=== PATIENT | male | born 1995 | race Caucasian/White ===

== ENCOUNTER 2016-10-22 12:55 | Emergency (ER) | payer SELFPAY ==
[2016-10-22 12:59] VITALS: TEMP 98; BMI 32.0
--- NOTE | 2016-10-22 14:05 | PDOC ---
History of Present Illness - General History Source: Patient Exam Limitations: No Limitations - History of Present Illness Initial Comments: 10/22/16 14:06 The patient is a 20 year old male, with no significant past medical history who presents to the emergency department with multiple syncopal episodes over this past 2 weeks. The patient reports in addition having intermittent episodes of lightheadedness, dizziness, chills, nausea, and headache for about a month. He also notes having some mild intermittent chest pain with decreased appetite for about 15 days. He notes his most recent syncopal episode was this Thursday, while at work. He denies any head trauma. He denies any palpitations. He denies any recent fevers. He denies any recent diarrhea or constipation. He denies any recent shortness of breath. He denies any recent dysuria, frequency, urgency or hematuria. Patient denies any history of anemia or diabetes.He denies any history of exertional syncope. Allergies: NKA Past surgical history: None reported. Social History: Nonsmoker. Denies EtOH use and recreational drug use. <Mark Gan - Last Filed: 10/22/16 14:06> <Graciela Johnson - Last Filed: 10/22/16 16:55> - General Chief Complaint: Lightheaded Stated Complaint: HEADACHE, NAUSEA Past History <Mark Gan - Last Filed: 10/22/16 14:06> - Past Medical History Other medical history: NONE - Psycho/Social/Smoking Cessation Hx Anxiety: No Suicidal Ideation: No Smoking History: Never smoked Hx Alcohol Use: Yes (SOCIAL) Drug/Substance Use Hx: No Substance Use Type: None <Graciela Johnson - Last Filed: 10/22/16 16:55> - Past Medical History Allergies/Adverse Reactions: Allergies Allergy/AdvReac Type Severity Reaction Status Date / Time No Known Allergies Allergy Verified 10/22/16 12:59 Home Medications: Ambulatory Orders NK [No Known Home Medication] 10/22/16 Review of Systems - Review of Systems Able to Perform ROS?: Yes Comments:: 10/22/16 14:06 GENERAL/CONSTITUTIONAL: No fever. +chills. No weakness. HEAD, EYES, EARS, NOSE AND THROAT: No change in vision. No ear pain or discharge. No sore throat. CARDIOVASCULAR: +mild chest pain No shortness of breath. RESPIRATORY: No cough, wheezing, or hemoptysis. GASTROINTESTINAL: +nausea No vomiting, diarrhea or constipation. GENITOURINARY: No dysuria, frequency, or change in urination. MUSCULOSKELETAL: No joint or muscle swelling or pain. No neck or back pain. SKIN: No rash NEUROLOGIC: +headache, syncope, and dizziness No vertigo, loss of consciousness , or change in strength/sensation. ENDOCRINE: No increased thirst. No abnormal weight change. HEMATOLOGIC/LYMPHATIC: No anemia, easy bleeding, or history of blood clots. ALLERGIC/IMMUNOLOGIC: No hives or skin allergy. <Mark Gan - Last Filed: 10/22/16 14:06> *Physical Exam - Vital Signs Last Vital Signs Temp Pulse Resp BP Pulse Ox 98.0 F 79 20 152/47 99 10/22/16 12:55 10/22/16 12:55 10/22/16 12:55 10/22/16 12:55 10/22/16 12:55 - Physical Exam Comments: 10/22/16 14:06 GENERAL: Awake, alert, and fully oriented, in no acute distress HEAD: No signs of trauma EYES: PERRLA, EOMI, sclera anicteric, conjunctiva clear ENT: Auricles normal inspection, hearing grossly normal, nares patent, oropharynx clear without exudates. Moist mucosa NECK: Normal ROM, supple, no lymphadenopathy, JVD, or masses LUNGS: Breath sounds equal, clear to auscultation bilaterally. No wheezes, and no crackles HEART: Regular rate and rhythm, normal S1 and S2, no murmurs, rubs or gallops ABDOMEN: Soft, nontender, normoactive bowel sounds. No guarding, no rebound. No masses EXTREMITIES: Normal range of motion, no edema. No clubbing or cyanosis. No cords, erythema, or tenderness NEUROLOGICAL: Cranial nerves II through XII grossly intact. Normal speech, normal gait SKIN: Warm, Dry, normal turgor, no rashes or lesions noted. <Mark Gan - Last Filed: 10/22/16 14:06> - Vital Signs Last Vital Signs Temp Pulse Resp BP Pulse Ox 98.0 F 79 20 152/47 99 10/22/16 12:55 10/22/16 12:55 10/22/16 12:55 10/22/16 12:55 10/22/16 12:55 <Graciela Johnson - Last Filed: 10/22/16 16:55> ED Treatment Course - LABORATORY CBC & Chemistry Diagram: 10/22/16 15:02 10/22/16 15:02 <Graciela Johnson - Last Filed: 10/22/16 16:55> Medical Decision Making - Medical Decision Making 10/22/16 14:01 20 yo male from [facility]. living here for 6 mo no pmhx here with c/o feeling lightheaded . did have chest pain 15 days ago. has been feeling lightheaded for 1 mo. 10/22/16 16:54 focused ED TTE, indication syncope finding: good contractility. heart visualized in 4 views. parasternal long short and apical subxiphoid. no pericardial effusion. no wall motion irregularity. no rv enlargement. impression: normal cardiac ultrasound og <Graciela Johnson - Last Filed: 10/22/16 16:55> *DC/Admit/Observation/Transfer - Attestations Scribe Attestion: 10/22/16 14:06 Documentation prepared by Mark Gan, acting as medical sales associate for Graciela Johnson MD. <Mark Gan - Last Filed: 10/22/16 14:06>
[2016-10-22] MEDS ORDERED: SODIUM CHLORIDE 0.9% 1000 ML INFUS.BAG IV ONE (14:54)
[2016-10-22 15:35] LABS: BASOPHIL 0.6 % (0-2.0); EOSINOPHIL 2.7 % (0-4.5); MCH 29.3 pg (25.7-33.7); MCHC 32.2 g/dl (32.0-35.9); MEAN CELL VOLUME 90.7 fl (80-96); MEAN PLT VOLUME 9.6 fl (7.5-11.1); NEUTROPHILS 62.4 % (42.8-82.8); PLATELET COUNT 197 K/MM3 (134-434); WHITE BLOOD COUNT 8.1 K/mm3 (4.0-10.0)
[2016-10-22 17:54] LABS: ALBUMIN 3.8 g/dl (3.4-5.0); ANION GAP 6 (8-16); BILIRUBIN,TOTAL 0.3 mg/dL (0.2-1.0); CO2 31 mmol/L (21-32); CREATININE 0.9 mg/dL (0.7-1.3); GLUCOSE,RANDOM 92 mg/dL (74-106); SGOT/AST 12 U/L (15-37); SGPT/ALT 28 U/L (12-78); TOT PROT 7.5 g/dl (6.4-8.2)
[2016-10-22 17:57] LABS: ALK PHOS 63 U/L (45-117); CPK 102 IU/L (39-308); TROPONIN I < 0.02 ng/ml (0.00-0.05)
[2016-10-22 19:01] VITALS: BP 142/60; PULSE 74
--- NOTE | 2016-10-22 19:01 | PDOC ---
*Physical Exam - Vital Signs Last Vital Signs Temp Pulse Resp BP Pulse Ox 98.0 F 79 20 152/47 99 10/22/16 12:55 10/22/16 12:55 10/22/16 12:55 10/22/16 12:55 10/22/16 12:55 - Physical Exam Comments: 10/22/16 18:56 Patient endorsed to me by Dr. Zimmer. Patient's 20-year-old male who presented to the ER with multiple syncopal episodes. In the ER, patient is awake and alert , well-appearing, in no distress. As per Dr. foley, bedside echocardiogram revealed normal myocardial contractility. EKG reveals no evidence of ischemia; NM/QTc/QRS are within normal limit. There is no evidence of Brugada syndrome/WPW /arvd or any other condition that may lead to syncope. CBC C/CMP/cardiac enzymes within normal limit. Patient is safe for discharge with outpatient follow-up with cardiology. ED Treatment Course - LABORATORY CBC & Chemistry Diagram: 10/22/16 15:02 10/22/16 17:05 - ADDITIONAL ORDERS Additional order review: Laboratory Results 10/22/16 10/22/16 10/22/16 17:05 15:02 15:02 Sodium 139 Cancelled Potassium 4.8 Cancelled Chloride 102 Cancelled Carbon Dioxide 31 Cancelled Anion Gap 6 L Cancelled BUN 12 Cancelled Creatinine 0.9 Cancelled Creat Clearance w eGFR > 60 Cancelled Random Glucose 92 Cancelled Calcium 9.0 Cancelled Total Bilirubin 0.3 Cancelled AST 12 L Cancelled ALT 28 Cancelled Alkaline Phosphatase 63 Cancelled Creatine Kinase 102 Cancelled Creatine Kinase Index Cancelled CK-MB (CK-2) Cancelled Troponin I < 0.02 Cancelled Total Protein 7.5 Cancelled Albumin 3.8 Cancelled 10/22/16 15:02 RBC 4.95 MCV 90.7 MCHC 32.2 RDW 14.0 MPV 9.6 Neutrophils % 62.4 Lymphocytes % 23.6 Monocytes % 10.7 H Eosinophils % 2.7 Basophils % 0.6 - Medications Given in the ED: ED Medications Discontinued Medications Generic Name Dose Route Start Last Admin Trade Name Freq PRN Reason Stop Dose Admin Sodium Chloride 1,000 ml 10/22/16 14:54 10/22/16 15:06 Normal Saline - IV 08/23/17 14:55 1,000 ml ONCE ONE Administration *DC/Admit/Observation/Transfer Diagnosis at time of Disposition: Syncope Qualifiers: Syncope type: unspecified Qualified Code(s): R55 - Syncope and collapse - Discharge Dispostion Disposition: HOME Condition at time of disposition: Stable - Referrals Referrals: Truong Barba MD [Staff Physician] - - Patient Instructions Printed Discharge Instructions: DI for Syncope in Adults (Fainting) Print Language: GERMAN
--- NOTE | 2016-10-23 10:54 | EKG ---
Test Reason : Blood Pressure : / mmHG Vent. Rate : 073 BPM Atrial Rate : 073 BPM P-R Int : 138 ms QRS Dur : 116 ms QT Int : 408 ms P-R-T Axes : 057 074 046 degrees QTc Int : 449 ms NORMAL SINUS RHYTHM POSSIBLE LEFT ATRIAL ENLARGEMENT INCOMPLETE RIGHT BUNDLE BRANCH BLOCK BORDERLINE ECG NO PREVIOUS ECGS AVAILABLE Confirmed by BJORN JERRY, MISTY ([id number]) on 10/23/2016 10:53:59 AM Referred By: Confirmed By:MISTY MILAN MD
== END 2016-10-22 19:06 | disposition home or self-care (01) ==
LOC: JER 12:55
DX: R55 Syncope and collapse (principal)
CPT/HCPCS: 36415; 71020-TC; 80053; 84484; 85025; 93005; 93010; 99285-25

== ENCOUNTER 2019-09-20 21:23 | Emergency (ER) | payer OTHER ==
--- NOTE | 2019-09-20 22:03 | PDOC ---
Rapid Medical Evaluation Chief Complaint: Pain, Acute Time Seen by Provider: 09/20/19 21:58 Medical Evaluation: Allergies Allergy/AdvReac Type Severity Reaction Status Date / Time No Known Allergies Allergy Verified 11/21/17 14:53 09/20/19 21:58 23 year old male was carrying a washing machine on the shoulder reports washing machine falling to and patient c/o pain to the left shoulder pain radiating to left upper back / neck, no midline pain. no numbness and tingling to the extrem ities Last Vital Signs Temp Pulse Resp BP Pulse Ox 98.7 F 87 20 142/91 97 09/20/19 21:55 09/20/19 21:55 09/20/19 21:55 09/20/19 21:55 09/20/19 21:55 PE: no midline pain + trapzieus muscle tenderness full rom. A: left shoulder pain ; trapezieus strain? P: left shoulder xray 09/20/19 22:02 Discharge Disposition - Diagnosis Left shoulder pain Qualifiers: Chronicity: acute Qualified Code(s): M25.512 - Pain in left shoulder Trapezius muscle strain Qualifiers: Encounter type: initial encounter Laterality: left Qualified Code(s): S46.812A - Strain of other muscles, fascia and tendons at shoulder and upper arm level, left arm, initial encounter - Referrals - Patient Instructions - Post Discharge Activity
[2019-09-20 22:04] VITALS: BP 142/91; PULSE 87; TEMP 98.7; BMI 37.3
[2019-09-20] MEDS ORDERED: KETOROLAC TROMETHAMINE 60 MG/2 ML VIAL IM ONE (22:30)
--- NOTE | 2019-09-20 22:32 | PDOC ---
History of Present Illness - General Chief Complaint: Pain Stated Complaint: INJURY Time Seen by Provider: 09/20/19 21:58 - History of Present Illness Initial Comments: 09/20/19 22:29 23-year-old male without comorbidities presents for evaluation of left shoulder pain. Patient states he was kneeling down to leave for a washing machine up on his shoulder when the cloth washer operator dropped onto his shoulder. He points to the left trapezium as the area of his discomfort no prior problems with the left shoulder she did not take anything for pain. Past History - Medical History Allergies/Adverse Reactions: Allergies Allergy/AdvReac Type Severity Reaction Status Date / Time No Known Allergies Allergy Verified 11/21/17 14:53 Home Medications: Ambulatory Orders NK [No Known Home Medication] 10/22/16 COPD: No - Psycho-Social/Smoking History Smoking History: Never smoked - Substance Abuse Hx (Audit-C & DAST Scrn) How often the patient has a drink containing alcohol: Never Score: In Men: 4 or > Positive; In Women: 3 or > Positive: 0 Screen Result (Pos requires Nsg. Audit-10AR): Negative Review of Systems - Review of Systems Musculoskeletal: Yes: Joint Pain *Physical Exam - Vital Signs Last Vital Signs Temp Pulse Resp BP Pulse Ox 98.7 F 87 20 142/91 97 09/20/19 21:55 09/20/19 21:55 09/20/19 21:55 09/20/19 21:55 09/20/19 21:55 - Physical Exam 09/20/19 22:29 Left shoulder skin color and temperature normal range of motion is limited in external rotation abduction internal rotation and adduction. 5 out of 5 strength with supraspinatus isolation tenderness about the trapezium no cervical midline tenderness upper extremity compartments are soft and nontender no gross sensorimotor deficits neurovascular intact. No other areas of tenderness in the shoulder. Medical Decision Making - Medical Decision Making 09/20/19 22:30 X-rays of the left shoulder show no evidence of fracture trauma or destructive process. This is a left shoulder contusion. Toradol in the emergency room follow-up with orthopedic surgery Moterrol at home discussed use of medication I have reviewed the pathophysiology with the patient. They are in agreement with the treatment plan all questions were answered to their satisfaction. Understanding for follow-up without fail was also conveyed to the patient. Again they are in agreement. Discharge - Discharge Information Problems reviewed: Yes Clinical Impression/Diagnosis: Contusion of left shoulder Left shoulder pain Qualifiers: Chronicity: acute Qualified Code(s): M25.512 - Pain in left shoulder Clinical Impression/Diagnosis: (Ruled Out): Trapezius muscle strain Condition: Stable Disposition: HOME - Admission No - Follow up/Referral Referrals: Troy Emerson DO [Staff Physician] - - Patient Discharge Instructions Additional Instructions: Please take Motrin and Tylenol as directed for pain. Do not start the Motrin until tomorrow as you were given an injection of a long-acting anti-inflammatory in the emergency room. Without fail follow-up with orthopedic surgery in 1 to 2 days and return to the emergency room should symptoms worsen. - Post Discharge Activity
[2019-09-20] MEDS ORDERED: KETOROLAC TROMETHAMINE 60 MG/2 ML VIAL ONE (22:35)
== END 2019-09-20 22:42 | disposition home or self-care (01) ==
LOC: JER 21:23 → JERFT 21:23
PROC: 3E023GC Introduction of Other Therapeutic Substance into Muscle, Percutaneous Approach (ICD-10-PCS; principal; 2019-09-20)
DX: S40.012A Contusion of left shoulder, initial encounter (principal); W22.8XXA Striking against or struck by other objects, initial encounter
CPT/HCPCS: 73030-TC-LT-FY; 96372; 99284-25

== ENCOUNTER 2021-04-03 17:45 | Emergency (ER) | payer OTHER ==
[2021-04-03 18:00] VITALS: BP 115/71; PULSE 77; TEMP 97.9; BMI 37.9
[2021-04-03 21:09] LABS: BASO % 0.8 % (0-2.0); EOS % 4.9 % (0-4.5); HEMATOCRIT 43.4 % (35.4-49); HEMOGLOBIN 14.7 GM/dL (11.7-16.9); LYMPH % 30.5 % (8-40); MCH 29.5 pg (25.7-33.7); MCHC 33.9 g/dl (32.0-35.9); MONO % 8.6 % (3.8-10.2); NEUT % 55.2 % (42.8-82.8); PLATELET COUNT 204 10^3/uL (134-434); RBC 4.99 M/mm3 (4.00-5.60); RDW 14.3 % (11.9-15.9); WHITE BLOOD COUNT 8.3 K/mm3 (4.0-10.0)
[2021-04-03 21:39] LABS: ALBUMIN 3.7 g/dl (3.4-5.0); BLOOD UREA NITROGEN 11.8 mg/dL (7-18); CALCIUM 8.7 mg/dL (8.5-10.1)
[2021-04-03 21:44] LABS: BILIRUBIN,TOTAL 0.4 mg/dL (0.2-1); TOT PROT 7.3 g/dl (6.4-8.2)
== END 2021-04-03 22:41 | disposition home or self-care (01) ==
LOC: JER 17:45
DX: R07.89 Other chest pain (principal)
CPT/HCPCS: 36415; 71046-TC-FY; 80053; 84484; 85025; 93005; 93010; 99285-25; C9803; U0003; U0005

== ENCOUNTER 2024-08-30 17:21 | Observation (INO) | payer OTHER ==
[2024-08-30 18:57] LABS: ABSOLUTE IMMATURE GRANULOCYTES 0.04 x10^3/uL (0.0-0.031); BASOPHILS # 0.08 x10^3/uL (0.01-0.08); EOSINOPHIL % 4.8 % (0.8-7.0); EOSINOPHILS # 0.52 x10^3/uL (0.04-0.54); MCHC 32.3 g/dl (32.3-36.5); MEAN CELL VOLUME 91.7 fl (79.0-92.2); MEAN PLT VOLUME 11.3 fl (9.4-12.4); MONOCYTE # 0.64 x10^3/uL (0.30-0.82); MONOCYTE % 5.9 % (5.3-12.2); RDW 13.2 % (11.9-15.3)
[2024-08-30 19:12] LABS: INR 1.17 (0.83-1.09); PROTHROMBIN TIME (PATIENT) 12.9 SEC (9.7-13.0)
[2024-08-30 19:15] LABS: ACTIVATED PTT 30.7 SECONDS (25.2-36.5)
[2024-08-30 19:27] LABS: CO2 30.0 mmol/L (21-32); GLUCOSE,RANDOM 96.0 mg/dL (74-106)
[2024-08-30 19:28] LABS: LACTIC ACID 2.2 mmol/L (0.4-2.0)
[2024-08-30 19:30] LABS: CREATININE 1.5 mg/dL (0.55-1.3); SGOT/AST 23.0 U/L (15-37); SGPT/ALT 34.0 U/L (13-61)
[2024-08-30 19:33] LABS: ALK PHOS 78.0 U/L (45-117)
[2024-08-30 19:35] LABS: TOT PROT 7.6 g/dl (6.4-8.2)
[2024-08-30] MEDS: LACTATED RINGERS SOLUTION 1000 ML INFUS.BAG IV ONE (19:37)
[2024-08-30] MEDS ORDERED: levETIRAcetam 500 MG TABLET (FP) PO ONE (20:45)
[2024-08-30 20:48] LABS: HCV DIAGNOSTIC IN-HOUSE W/RFLX NON-REACTIVE (NONREACTIVE); HIV INTERPRETATION NEGATIVE (NEGATIVE)
[2024-08-30] MEDS: levETIRAcetam 500 MG TABLET (FP) PO ONE (20:55)
[2024-08-31 02:35] VITALS: BMI 35.8
[2024-08-31 03:05] LABS: COCAINE, UR NEGATIVE (NEGATIVE); URINE AMPHETAMINES NEGATIVE (NEGATIVE); URINE BARBITURATES NEGATIVE (NEGATIVE)
[2024-08-31 03:06] LABS: METHADONE, UR NEGATIVE (NEGATIVE)
[2024-08-31 03:08] LABS: OPIATES, URI NEGATIVE (NEGATIVE); PHENCYCLIDINE,URINE NEGATIVE (NEGATIVE); URINE BENZODIAZEPINES NEGATIVE (NEGATIVE)
[2024-08-31 08:05] LABS: ABSOLUTE IMMATURE GRANULOCYTES 0.06 x10^3/uL (0.0-0.031); BASOPHILS # 0.09 x10^3/uL (0.01-0.08); EOSINOPHIL % 6.8 % (0.8-7.0); EOSINOPHILS # 0.69 x10^3/uL (0.04-0.54); MCHC 31.1 g/dl (32.3-36.5); MEAN CELL VOLUME 92.7 fl (79.0-92.2); MEAN PLT VOLUME 11.4 fl (9.4-12.4); MONOCYTE # 0.80 x10^3/uL (0.30-0.82); MONOCYTE % 7.9 % (5.3-12.2); RDW 13.2 % (11.9-15.3)
[2024-08-31 08:27] LABS: CO2 28.0 mmol/L (21-32); GLUCOSE,RANDOM 100.0 mg/dL (74-106)
[2024-08-31 08:30] LABS: CREATININE 1.0 mg/dL (0.55-1.3); SGOT/AST 11.0 U/L (15-37); SGPT/ALT 28.0 U/L (13-61)
[2024-08-31 08:31] LABS: TOT PROT 6.6 g/dl (6.4-8.2)
[2024-08-31 08:33] LABS: ALK PHOS 65.0 U/L (45-117)
[2024-08-31] MEDS ORDERED: ENOXAPARIN NA (PORCINE) 40 MG/0.4 ML DISP.SYRIN SQ SCH (10:00)
[2024-08-31] MEDS: levETIRAcetam 500 MG TABLET (FP) PO SCH (10:11)
[2024-08-31] MEDS: LACTATED RINGERS SOLUTION 1,000 ML/1,000 ML INFUS.BAG IV SCH (10:12)
[2024-08-31 10:28] VITALS: BP 114/70; PULSE 66; RESP 16; TEMP 98.2
== END 2024-08-31 12:17 | disposition home or self-care (01) ==
LOC: JER 17:21 → JERBED 20:28 → J4W 08-31 00:41
PROVIDERS: ADMIT Student in an Organized Health Care Education/Training Program; ATTEND Internal Medicine
PROC: 3E0337Z Introduction of Electrolytic and Water Balance Substance into Peripheral Vein, Percutaneous Approach (ICD-10-PCS; principal; 2024-08-30)
DX: R56.9 Unspecified convulsions (principal); N17.9 Acute kidney failure, unspecified; J45.909 Unspecified asthma, uncomplicated; W10.9XXA Fall (on) (from) unspecified stairs and steps, initial encounter; Y93.89 Activity, other specified; Y92.008 Other place in unspecified non-institutional (private) residence as the place of occurrence of the external cause
CPT/HCPCS: 36415; 70450-TC; 70553-TC; 71045-TC-FY; 80053; 80307; 82550; 82553; 82962; 83605; 83735; 84100; 84484; 85025; 85610; 85730; 86803; 87389; 93005; 93010; 95816; 96360; 96361; 99285-25; G0378